=== PATIENT | female | born 1960 | race Caucasian/White ===

== ENCOUNTER 2017-05-14 10:46 | Emergency (ER) | payer OTHER ==
[~2017-05-14] VITALS: Ht 157.5 cm; Wt 61.0 kg
[~2017-05-14 10:46] MED LIST: (None)3.5 GM OP; ABILIFY5 MG PO; ADDERALL10 MG PO; ANTIVERT OR; ASPIRIN LOW DOS81 M2 PO; ATENOLOL25 MG OR; ATENOLOL25 MG PO; ATORVASTATIN CA40 MG PO; BENADRYL25 M1 PO; BUSPAR10 MG OR; C 250 PO; CELEXA20 MG OR; CELEXA40 MG PO; CIPRO500 MG OR; DICLOFENAC SODI75 MG PO; DIPHENHYDRAM25 M4 PO; EFFEXOR75 MG OR; ENDOCORT OR; FLEXERIL OR; FLEXERIL PO; GENTAMICIN SULF5 ML OP; HUMIRA10 MG/0.2 SC; LORTAB 5 OR; MICARDIS40 MG OR; MIRTAZAPINE15 MG PO; OTEZLA 10 & 201 TAB PO; PENICILLN VK500 MG PO; PERCOCET 5/325M1 TAB OR; PERIDEX0.12 % MT; PRAVASTATIN20 MG PO; PRILOSEC20 MG OR; PROCARDIA XL60 MG PO; SANDIMMUNE100 MG PO; TENORMIN100 MG OR; TENORMIN25 MG OR; ULTRAM50 M1 PO; ZOFRAN ODT4 MG PO; ZOFRAN ODT8 MG SL
[2017-05-14] MEDS ORDERED: NAPROSYN500 MG PO (14:41)
[2017-05-14 14:50] VITALS: BP 130/80
== END 2017-05-14 14:50 | disposition home or self-care (01) | DRG 556 ==
LOC: ED 10:46
DX: M25.551 Pain in right hip (principal); Z91.81 History of falling; W19.XXXA Unspecified fall, initial encounter; Y92.009 Unspecified place in unspecified non-institutional (private) residence as the place of occurrence of the external cause

== ENCOUNTER 2019-03-17 14:43 | Emergency (ER) | payer OTHER ==
[~2019-03-17] VITALS: Ht 157.5 cm; Wt 61.0 kg
[~2019-03-17 14:43] MED LIST changes: +NAPROSYN500 MG PO
[2019-03-17] MEDS ORDERED: DONEPEZIL10 MG PO (15:58)
[2019-03-17] MEDS ORDERED: NIFEDIPINE ER30 M1 PO (15:58)
[2019-03-17] MEDS ORDERED: ATORVASTATIN CA20 MG PO (15:59)
[2019-03-17] MEDS ORDERED: MEMANTINE HCL10 MG PO (15:59)
[2019-03-17] MEDS ORDERED: SERTRALINE25 MG PO (15:59)
[2019-03-17 17:15] VITALS: BP 109/74
== END 2019-03-17 17:15 | disposition home or self-care (01) | DRG 605 ==
LOC: ED 14:43
DX: S30.0XXA Contusion of lower back and pelvis, initial encounter (principal); F03.90 Unspecified dementia, unspecified severity, without behavioral disturbance, psychotic disturbance, mood disturbance, and anxiety; I10 Essential (primary) hypertension; W01.0XXA Fall on same level from slipping, tripping and stumbling without subsequent striking against object, initial encounter; Y92.009 Unspecified place in unspecified non-institutional (private) residence as the place of occurrence of the external cause

== ENCOUNTER 2020-12-21 10:26 | Inpatient (IN) | payer OTHER ==
[~2020-12-21] VITALS: Ht 157.5 cm; Wt 69.0 kg
[~2020-12-21 10:26] MED LIST changes: +ATORVASTATIN CA20 MG PO; +DONEPEZIL10 MG PO; +MEMANTINE HCL10 MG PO; +NIFEDIPINE ER30 M1 PO; +SERTRALINE25 MG PO
[2020-12-21 14:38] LABS: HEMOGLOBIN 13.6 g/dl (12.0-16.0); IMMATURE GRANULOCYTES 0.1 % (0.0-5.0); MEAN CELL VOLUME 93.6 fL CALC (80.0-100.0); MEAN CORPUSCULAR HGB 30.9 pG CALC (26.0-32.0); NEUT# 6.8 thou/uL (2.00-7.15); RED BLOOD COUNT 4.4 mill/uL (4.20-5.60); RED CELL DISTRI WIDTH 13.6 % (11.5-15.5)
[2020-12-21 14:39] LABS: HEMATOCRIT 41.2 % (37.0-47.0)
[2020-12-21 14:55] LABS: ALKALINE PHOSPHATASE 61 u/l (38-126); BILIRUBIN, TOTAL 0.3 mg/dL (0.0-1.4); BUN 13 mg/dL (8-23); BUN/CREATININE RATIO 21 (12-20 (CALC)); CARBON DIOXIDE 28 mmol/l (22-30); CREATININE 0.6 mg/dL (0.5-1.0); GFR > 60 ML/MIN (>=60 (CALC)); GFR FOR AFR.AMER. > 60 ML/MIN (>=60 (CALC)); TOTAL PROTEIN 6.8 g/dL (6.3-8.2)
[2020-12-21 14:57] LABS: ALBUMIN 3.7 g/dL (3.2-5.0); ANION GAP 13 (6-22 (CALC)); CHLORIDE 93 mmol/l (95-108); SGOT/AST 59 u/l (9-36); SODIUM 131 mmol/l (137-146)
[2020-12-21 21:50] VITALS: BP 88/60
[2020-12-21 21:58] LABS: URINE BILIRUBIN - DIPSTICK NEGATIVE (NEGATIVE); URINE BLOOD DIPSTICK SMALL (NEGATIVE); URINE COLOR YELLOW; URINE GLUCOSE - DIPSTICK NEGATIVE (NEGATIVE); URINE KETONE TRACE mg/dL (NEGATIVE); URINE LEUK ESTERASE TRACE (NEGATIVE); URINE PH 6.5 (4.5-8.0); URINE PROTEIN - DIPSTICK NEGATIVE (NEG-TRACE); URINE UROBILINOGEN - DIPSTICK 0.2 E.U./dL (0.2)
[2020-12-21 22:02] LABS: URINE NITRITE - DIPSTICK NEGATIVE (Negative)
[2020-12-21 22:09] LABS: URINE BACTERIA FEW hpf; URINE SQUAMOUS EPITHELIAL CELL FEW EPI/hpf (0-FEW)
[2020-12-21 22:45] VITALS: BP 92/58
[2020-12-22 00:47] VITALS: BP 96/60
[2020-12-22 05:35] VITALS: BP 110/65
[2020-12-22] MEDS ORDERED: MIRTAZAPINE15 MG PO (08:17)
[2020-12-22] MEDS ORDERED: DIVALPROEX SOD250 MG PO (08:18)
[2020-12-22] MEDS ORDERED: QUETIAPINE FUMA25 MG PO (08:18)
[2020-12-22 08:20] LABS: HEMATOCRIT 41.7 % (37.0-47.0); HEMOGLOBIN 13.8 g/dl (12.0-16.0); IMMATURE GRANULOCYTES 0.2 % (0.0-5.0); MEAN CELL VOLUME 94.1 fL CALC (80.0-100.0); MEAN CORPUSCULAR HGB 31.2 pG CALC (26.0-32.0); MEAN CORPUSCULAR HGB CONC 33.1 g/dL CAL (32.0-36.0); NEUT# 5.19 thou/uL (2.00-7.15); RED BLOOD COUNT 4.43 mill/uL (4.20-5.60); RED CELL DISTRI WIDTH 13.8 % (11.5-15.5)
[2020-12-22] MEDS ORDERED: STELARA SC (08:20)
[2020-12-22 09:16] LABS: ANION GAP 11 (6-22 (CALC)); BUN 13 mg/dL (8-23); BUN/CREATININE RATIO 28 (12-20 (CALC)); C-REACTIVE PROTEIN 2.9 mg/dL (0-0.9); CARBON DIOXIDE 24 mmol/l (22-30); CHLORIDE 106 mmol/l (95-108); CREATININE 0.5 mg/dL (0.5-1.0); GFR > 60 ML/MIN (>=60 (CALC)); GFR FOR AFR.AMER. > 60 ML/MIN (>=60 (CALC)); POTASSIUM 3.3 mmol/l (3.5-5.1); SODIUM 138 mmol/l (137-146)
[2020-12-22] MEDS ORDERED: ZITHROMAX250 MG PO (12:46)
[2020-12-22] MEDS ORDERED: DEXAMETHASON6 MG PO (12:46)
[2020-12-22] MEDS ORDERED: ASPIRIN REGULA325 M1 PO (12:50)
== END 2020-12-22 15:32 | disposition home health service (06) | DRG 177 ==
LOC: ED 10:26 → ED-I 17:00 → ED 17:21 → MS2 17:22
PROVIDERS: Physician Assistant Surgical; ADMIT Internal Medicine; ATTEND Internal Medicine
DX: U07.1 COVID-19 (principal); J12.82 Pneumonia due to coronavirus disease 2019; F03.91 Unspecified dementia, unspecified severity, with behavioral disturbance; R09.02 Hypoxemia; I10 Essential (primary) hypertension; Z78.1 Physical restraint status; Z87.891 Personal history of nicotine dependence
CPT/HCPCS: J1650; J2060; S0166